=== PATIENT | male | born 1960 | race Caucasian/White ===

== ENCOUNTER 2020-01-08 05:50 | Emergency (ER) | payer MEDICAID ==
[~2020-01-08] VITALS: Ht 193 cm; Wt 100.0 kg
[2020-01-08] MEDS ORDERED: HYDROCODONE/ACETAMINOPHEN 10/325MG TABLET PO ONE (07:00)
[2020-01-08] MEDS ORDERED: IBUPROFEN 600MG TABLET PO ONE (07:00)
[2020-01-08 07:07] VITALS: BP 152/90
[2020-01-08] MEDS ORDERED: KETOROLAC 30MG/ML VIAL IM ONE (10:00)
== END 2020-01-08 11:10 | disposition home or self-care (01) ==
LOC: ER 05:50
DX: S70.01XA Contusion of right hip, initial encounter (principal); M25.552 Pain in left hip; I10 Essential (primary) hypertension; W18.39XA Other fall on same level, initial encounter; Y93.89 Activity, other specified; Y99.8 Other external cause status; Y92.89 Other specified places as the place of occurrence of the external cause
CPT/HCPCS: 73502; 96372; 99283; J1885